=== PATIENT | female | born 1955 | race African-American/Black ===

== ENCOUNTER 2016-06-08 03:52 | Emergency (ER) | payer OTHER ==
[2016-06-08 04:12] VITALS: BMI 28.3
--- NOTE | 2016-06-08 04:49 | PDOC ---
History of Present Illness - General History Source: Patient Exam Limitations: No Limitations - History of Present Illness Initial Comments: 06/08/16 05:11 The patient is a 60-year-old female with a significant past medical history of hypertension, and presents to the emergency department with left upper back pain and nausea tonight. The patient reports she woke up with excruciating pain in the left neck region radiating all the way around her shoulder to the upper back. She described the pain as a tightness and as if she was in a land department head. She reports that the veins in her left arm and hand appeared to pop out more than normal during this episode. She also states that she felt nauseous when she sat up, as if the food was squeezing back up. The patient denies shortness of breath, headache and dizziness. The patient denies fever, chills, vomit, diarrhea and constipation. The patient denies dysuria, frequency, urgency and hematuria. Allergies: NKDA Past Surgical History: None reported Social History: No toxic habits reported PCP: Dr. Vega <Ana Guevara - Last Filed: 06/08/16 05:11> <Kellie Dillon - Last Filed: 06/08/16 22:19> - General Chief Complaint: Pain, Acute Stated Complaint: LEFT SHOULDER PAIN Time Seen by Provider: 06/08/16 04:36 Past History <Ana Guevara - Last Filed: 06/08/16 05:11> - Surgical History Abdominal Surgery: Yes (ectopic, adhesions) Cholecystectomy: Yes - Family Disease History Family Disease History: Other: Father (CVA) - Psycho/Social/Smoking Cessation Hx Suicidal Ideation: No Smoking History: Never smoked <Kellie Dillon - Last Filed: 06/08/16 22:19> - Past Medical History Allergies/Adverse Reactions: Allergies Allergy/AdvReac Type Severity Reaction Status Date / Time INNA Inhibitors Allergy Verified 06/08/16 05:21 No INNA Allergy Uncoded 06/08/16 04:14 Home Medications: Ambulatory Orders Amlodipine Besylate [Norvasc -] 10 mg PO DAILY 06/08/16 Review of Systems - Review of Systems Able to Perform ROS?: Yes Comments:: 06/08/16 05:12 CONSTITUTIONAL: Absent: fever, chills, diaphoresis, generalized weakness, malaise, loss of appetite HEENT: Absent: rhinorrhea, nasal congestion, throat pain, throat swelling, difficulty swallowing, mouth swelling, ear pain, eye pain, visual changes CARDIOVASCULAR: Absent: chest pain, syncope, palpitations, irregular heart rate, lightheadedness , peripheral edema RESPIRATORY: Absent: cough, shortness of breath, dyspnea with exertion, orthopnea, wheezing, stridor, hemoptysis GASTROINTESTINAL: Present: (+) nausea Absent: abdominal pain, abdominal distension, vomiting, diarrhea, constipation, melena, hematochezia GENITOURINARY: Absent: dysuria, frequency, urgency, hesitancy, hematuria, flank pain, genital pain MUSCULOSKELETAL: Present: (+) left upper back and neck pain Absent: arthralgia, joint swelling SKIN: Absent: rash, itching, pallor HEMATOLOGIC/IMMUNOLOGIC: Absent: easy bleeding, easy bruising, lymphadenopathy, frequent infections ENDOCRINE: Absent: unexplained weight gain, unexplained weight loss, heat intolerance, cold intolerance NEUROLOGIC: Absent: headache, focal weakness or paresthesias, dizziness, unsteady gait, seizure, mental status changes, bladder or bowel incontinence PSYCHIATRIC: Absent: anxiety, depression, suicidal or homicidal ideation, hallucinations. <Ana Guevara - Last Filed: 06/08/16 05:11> *Physical Exam - Vital Signs Last Vital Signs Temp Pulse Resp BP Pulse Ox 97.9 F 72 18 134/81 98 06/08/16 04:10 06/08/16 04:10 06/08/16 04:10 06/08/16 04:10 06/08/16 04:10 - Physical Exam Comments: 06/08/16 05:12 GENERAL: Well developed, well nourished. Awake and alert. No acute distress. HEENT: Normocephalic, atraumatic. PERRLA, EOMI. No conjunctival pallor. Sclera are non- icteric. Moist mucous membranes. Oropharynx is clear. NECK: Supple. Full ROM. No JVD. Carotid pulses 2+ and symmetric, without bruits. No thyromegaly. No lymphadenopathy. CARDIOVASCULAR: Regular rate and rhythm. No murmurs, rubs, or gallops. Distal pulses are 2+ and symmetric. PULMONARY: No evidence of respiratory distress. Lungs clear to auscultation bilaterally. No wheezing, rales or rhonchi. ABDOMINAL: Soft. Non-tender. Non-distended. No rebound or guarding. No organomegaly. Normoactive bowel sounds. MUSCULOSKELETAL (+) Minimal tenderness on her left trapezius. Normal range of motion at all joints. No bony deformities. No CVA tenderness. EXTREMITIES: No cyanosis. No clubbing. No edema. No calf tenderness. SKIN: Warm and dry. Normal capillary refill. No rashes. No jaundice. NEUROLOGICAL: Alert, awake, appropriate. Cranial nerves 2-12 intact. No deficits to light touch and temperature in face, upper extremities and lower extremities. No motor deficits in the in face, upper extremities and lower extremities. Normoreflexic in the upper and lower extremities. Normal speech. Toes are down- going bilaterally. Gait is normal without ataxia. PSYCHIATRIC: Cooperative. Good eye contact. Appropriate mood and affect. <Ana Guevara - Last Filed: 06/08/16 05:11> - Vital Signs Last Vital Signs Temp Pulse Resp BP Pulse Ox 97.9 F 72 18 134/81 98 06/08/16 04:10 06/08/16 04:10 06/08/16 04:10 06/08/16 04:10 06/08/16 04:10 <Kellie Dillon - Last Filed: 06/08/16 22:19> ED Treatment Course - LABORATORY CBC & Chemistry Diagram: 06/08/16 06:21 06/08/16 07:35 <Kellie Dillon - Last Filed: 06/08/16 22:19> Medical Decision Making - Medical Decision Making 06/08/16 07:06 Pt comes with left back pain and nausea and vomiting that woke her from sleep. Cardiac panel pending. Pt's vitals and exam are normal. Pt will be signed out to the Day ER doctor who will follow a second cardiac enzyme and disposition patient at that point. <Kellie Dillon - Last Filed: 06/08/16 22:19> *DC/Admit/Observation/Transfer - Attestations Scribe Attestion: 06/08/16 05:12 Documentation prepared by Ana Guevara, acting as medical records technician for Kellie Dillon MD. <Ana Guevara - Last Filed: 06/08/16 05:11> <Kellie Dillon - Last Filed: 06/08/16 22:19> Diagnosis at time of Disposition: Neck pain, Lightheadedness - Discharge Dispostion Disposition: HOME Condition at time of disposition: Improved - Referrals Referrals: Willi Rosen MD [Staff Physician] - 24 hours (Cardiology-please call tomorrow to be seen in 24-48 hours) STAFF,NOT ON [Primary Care Provider] - - Patient Instructions Additional Instructions: Rest, Tylenol or Motrin for discomfort Please follow-up with Dr. [id number] we discussed Please call tomorrow to be seen in the office in 24-48 hours Followup with your primary care physician in 24-48 hours Return immediately if you worsen in any way - Post Discharge Activity Work/School Note: Back to Work
[2016-06-08] MEDS ORDERED: METHOCARBAMOL 500 MG TABLET PO ONE (05:02)
[2016-06-08] MEDS ORDERED: KETOROLAC TROMETHAMINE 30 MG/1 ML VIAL IVPUSH ONE (05:02)
[2016-06-08 06:51] LABS: BASOPHIL 0.5 % (0-2.0); EOSINOPHIL 2.4 % (0-4.5); MCH 29.2 pg (25.7-33.7); MCHC 32.3 g/dl (32.0-36.0); MEAN CELL VOLUME 90.2 fl (80-96); MEAN PLT VOLUME 10.8 fl (7.5-11.1); NEUTROPHILS 53.1 % (42.8-82.8); PLATELET COUNT 197 K/MM3 (134-434); RDW 13.3 % (11.6-15.6); WHITE BLOOD COUNT 7.1 K/mm3 (4.0-10.0)
[2016-06-08 07:03] LABS: INR 1.05 (0.82-1.09); PROTHROMBIN TIME (PATIENT) 11.6 SEC (9.98-11.88)
[2016-06-08 08:10] VITALS: TEMP 98.1
--- NOTE | 2016-06-08 08:22 | PDOC ---
*Physical Exam - Vital Signs Last Vital Signs Temp Pulse Resp BP Pulse Ox 98.1 F 70 18 133/78 99 06/08/16 08:07 06/08/16 08:07 06/08/16 08:07 06/08/16 08:07 06/08/16 08:07 - Physical Exam Comments: 06/08/16 08:18 SIGN IN Sign-out received from outgoing Emergency Physician Pt interviewed and examined Ancillary studies reviewed 60-year-old female with a past medical history of hypertension Family history-father had an OH at age 60 She has no history of diabetes, hyperlipidemia, or any other cardiac risk factors She is a nonsmoker Patient states that she was awakened from sleep with left trapezius and left neck spasm and tightness Then she felt very dizzy and lightheaded and nauseated, and felt some discomfort in her left arm, as noted in original note She denies any associated chest pain or palpitations She does state that in the past few days she's had some very mild intermittent chest pain off and on, which she did not seek medical attention for She denies any recent travel Last flight was in March She denies any calf pain or leg swelling She denies any palpitations She denies any recent intercurrent illnesses Physical exam Last Vital Signs Temp Pulse Resp BP Pulse Ox 98.1 F 70 18 133/78 99 06/08/16 08:07 06/08/16 08:07 06/08/16 08:07 06/08/16 08:07 06/08/16 08:07 GENERAL: The patient is awake, alert, and fully oriented, and in no apparent distress. HEAD: Normal with no signs of trauma. EYES: sclera anicteric, conjunctiva are normal. ENT: Moist mucous membranes. NECK: Normal range of motion, supple without lymphadenopathy, JVD, or masses. Patient states she's feeling better after muscle relaxer LUNGS: Breath sounds equal, clear to auscultation bilaterally. No wheezes, and no crackles. HEART: Regular rate and rhythm, normal S1 and S2 without murmur, rub or gallop. ABDOMEN: Soft, nontender, normoactive bowel sounds. No guarding, no rebound. No masses appreciated. EXTREMITIES: Normal range of motion, no edema. No clubbing or cyanosis. No cords, erythema, or tenderness. NEUROLOGICAL: Cranial nerves II through XII grossly intact. Normal speech, normal gait. PSYCH: Normal mood, normal affect. SKIN: Warm, Dry, normal turgor, no rashes or lesions noted. EKG Normal sinus rhythm 64, left axis deviation -6 Normal AV and IV conduction time Normal QTC Nonspecific ST T's When compared to the EKG of 02/12/13 Today's EKG is basically unchanged from the prior EKG Labwork Laboratory Results - last 24 hr 06/08/16 06/08/16 06/08/16 06:21 06:21 06:21 WBC 7.1 RBC 4.34 Hgb 12.7 Hct 39.2 MCV 90.2 MCHC 32.3 RDW 13.3 Plt Count 197 MPV 10.8 D Neutrophils % 53.1 Lymphocytes % 35.4 Monocytes % 8.6 Eosinophils % 2.4 Basophils % 0.5 INR 1.05 Sodium Cancelled Potassium Cancelled Chloride Cancelled Carbon Dioxide Cancelled Anion Gap Cancelled BUN Cancelled Creatinine Cancelled Creat Clearance w eGFR Cancelled Random Glucose Cancelled Calcium Cancelled Total Bilirubin Cancelled AST Cancelled ALT Cancelled Alkaline Phosphatase Cancelled Creatine Kinase Cancelled Troponin I Cancelled Total Protein Cancelled Albumin Cancelled Labwork hemolyzed and had to be redrawn May need second set of cardiac enzymes, with touch base with cardiology 06/08/16 14:26 EKG #2 Normal sinus rhythm, left axis deviation -5 Normal AV and IV conduction time Normal QTC Nonspecific ST-T waves When compared to EKG #1, which was done at 5:25 AM EKG #2 was unchanged from EKG #1 06/08/16 15:29 Second set of cardiac enzymes negative Case and all results discussed with Dr. Rosen-cardiology Patient will be seen in the cardiology office in 24-48 hours ED Treatment Course - LABORATORY CBC & Chemistry Diagram: 06/08/16 06:21 06/08/16 07:35 - ADDITIONAL ORDERS Additional order review: Laboratory Results 06/08/16 06/08/16 06:21 06:21 INR 1.05 Sodium Cancelled Potassium Cancelled Chloride Cancelled Carbon Dioxide Cancelled Anion Gap Cancelled BUN Cancelled Creatinine Cancelled Creat Clearance w eGFR Cancelled Random Glucose Cancelled Calcium Cancelled Total Bilirubin Cancelled AST Cancelled ALT Cancelled Alkaline Phosphatase Cancelled Creatine Kinase Cancelled Troponin I Cancelled Total Protein Cancelled Albumin Cancelled 06/08/16 06:21 RBC 4.34 MCV 90.2 MCHC 32.3 RDW 13.3 MPV 10.8 D Neutrophils % 53.1 Lymphocytes % 35.4 Monocytes % 8.6 Eosinophils % 2.4 Basophils % 0.5 - Medications Given in the ED: ED Medications Discontinued Medications Generic Name Dose Route Start Last Admin Trade Name Santy PRN Reason Stop Dose Admin Ketorolac Tromethamine 30 mg 06/08/16 05:02 06/08/16 06:44 Toradol Injection - IVPUSH 06/08/16 05:03 30 mg ONCE ONE Administration Methocarbamol 1,000 mg 06/08/16 05:02 06/08/16 05:44 Robaxin - PO 06/08/16 05:03 1,000 mg ONCE ONE Administration Medical Decision Making - Medical Decision Making 06/08/16 08:44 Laboratory Results - last 24 hr 06/08/16 06/08/16 06/08/16 06:21 06:21 06:21 WBC 7.1 RBC 4.34 Hgb 12.7 Hct 39.2 MCV 90.2 MCHC 32.3 RDW 13.3 Plt Count 197 MPV 10.8 D Neutrophils % 53.1 Lymphocytes % 35.4 Monocytes % 8.6 Eosinophils % 2.4 Basophils % 0.5 INR 1.05 Sodium Cancelled Potassium Cancelled Chloride Cancelled Carbon Dioxide Cancelled Anion Gap Cancelled BUN Cancelled Creatinine Cancelled Creat Clearance w eGFR Cancelled Random Glucose Cancelled Calcium Cancelled Total Bilirubin Cancelled AST Cancelled ALT Cancelled Alkaline Phosphatase Cancelled Creatine Kinase Cancelled Troponin I Cancelled Total Protein Cancelled Albumin Cancelled 06/08/16 07:35 WBC RBC Hgb Hct MCV MCHC RDW Plt Count MPV Neutrophils % Lymphocytes % Monocytes % Eosinophils % Basophils % INR Sodium 142 Potassium 4.2 Chloride 106 Carbon Dioxide 29 Anion Gap 7 L BUN 15 D Creatinine 1.1 H D Creat Clearance w eGFR 50.84 Random Glucose 87 D Calcium 8.4 L Total Bilirubin 0.5 AST 18 D ALT 19 Alkaline Phosphatase 112 D Creatine Kinase 73 Troponin I < 0.02 Total Protein 7.0 Albumin 3.6 First set of cardiac enzymes negative CMP reviewed second set of cardiac enzymes in 6 hours negative 2 EKG's unchanged and unchanged from old EKG *DC/Admit/Observation/Transfer Diagnosis at time of Disposition: Neck pain, Lightheadedness - Discharge Dispostion Disposition: HOME Condition at time of disposition: Improved - Referrals Referrals: STAFF,NOT ON [Primary Care Provider] - Willi Rosen MD [Staff Physician] - 24 hours (Cardiology-please call tomorrow to be seen in 24-48 hours) - Patient Instructions Additional Instructions: Rest, Tylenol or Motrin for discomfort Please follow-up with Dr. [id number]-de we discussed Please call tomorrow to be seen in the office in 24-48 hours Followup with your primary care physician in 24-48 hours Return immediately if you worsen in any way - Post Discharge Activity Work/School Note: Back to Work
[2016-06-08 08:23] LABS: ALBUMIN 3.6 g/dl (3.4-5.0); ANION GAP 7 (8-16); BILIRUBIN,TOTAL 0.5 mg/dL (0.2-1.0); CALCIUM 8.4 mg/dL (8.5-10.1); CO2 29 mmol/L (21-32); CREATININE 1.1 mg/dL (0.55-1.02); GLUCOSE,RANDOM 87 mg/dL (74-106); SGOT/AST 18 U/L (15-37); SGPT/ALT 19 U/L (12-78)
[2016-06-08 08:26] LABS: ALK PHOS 112 U/L (45-117); TROPONIN I < 0.02 ng/ml (0.00-0.05)
[2016-06-08 15:11] LABS: TROPONIN I < 0.02 ng/ml (0.00-0.05)
[2016-06-08 15:41] VITALS: BP 154/88; PULSE 80
--- NOTE | 2016-06-09 00:06 | EKG ---
Test Reason : Blood Pressure : / mmHG Vent. Rate : 064 BPM Atrial Rate : 064 BPM P-R Int : 182 ms QRS Dur : 090 ms QT Int : 438 ms P-R-T Axes : 039 -06 025 degrees QTc Int : 451 ms NORMAL SINUS RHYTHM MINIMAL VOLTAGE CRITERIA FOR LVH, MAY BE NORMAL VARIANT CANNOT RULE OUT ANTERIOR INFARCT , AGE UNDETERMINED ABNORMAL ECG WHEN COMPARED WITH ECG OF 12-FEB-2013 19:55, NO SIGNIFICANT CHANGE WAS FOUND Confirmed by TRACI GOVEA MD ([id number]) on 06/09/2016 12:05:51 AM Referred By: Confirmed By:TRACI GOVEA MD
--- NOTE | 2016-06-09 00:12 | EKG ---
Test Reason : Blood Pressure : / mmHG Vent. Rate : 066 BPM Atrial Rate : 066 BPM P-R Int : 174 ms QRS Dur : 094 ms QT Int : 446 ms P-R-T Axes : 043 -05 032 degrees QTc Int : 467 ms NORMAL SINUS RHYTHM MINIMAL VOLTAGE CRITERIA FOR LVH, MAY BE NORMAL VARIANT CANNOT RULE OUT ANTERIOR INFARCT (CITED ON OR BEFORE 08-JUN-2016) ABNORMAL ECG WHEN COMPARED WITH ECG OF 08-JUN-2016 05:25, NO SIGNIFICANT CHANGE WAS FOUND Confirmed by TRACI GOVEA MD ([id number]) on 06/09/2016 12:11:37 AM Referred By: Confirmed By:TRACI GOVEA MD
== END 2016-06-08 15:42 | disposition home or self-care (01) ==
LOC: JER 03:52
PROC: 3E0333Z Introduction of Anti-inflammatory into Peripheral Vein, Percutaneous Approach (ICD-10-PCS; principal; 2016-06-08)
DX: M54.2 Cervicalgia (principal); R42 Dizziness and giddiness; M62.838 Other muscle spasm; I10 Essential (primary) hypertension
CPT/HCPCS: 36415; 71020-TC; 80053; 82550; 84484; 85025; 85610; 93005; 93010; 96374; 99285-25

== ENCOUNTER 2016-07-22 20:34 | Emergency (ER) | payer OTHER ==
[2016-07-22] MEDS ORDERED: OXYCODONE/APAP 5/325MG COMBO TABLET PO ONE (20:55)
--- NOTE | 2016-07-22 20:58 | PDOC ---
Rapid Medical Evaluation Chief Complaint: Injury Time Seen by Provider: 07/22/16 20:52 Medical Evaluation: Allergies Allergy/AdvReac Type Severity Reaction Status Date / Time INNA Inhibitors Allergy Verified 06/08/16 05:21 No INNA Allergy Uncoded 06/08/16 04:14 07/22/16 20:56 I have performed a brief in-person evaluation of this patient. o The patient presents with a chief complaint of: S/P Fall, Left wrist deformity. o Pertinent physical exam findings: Deformity to the left wrist. Pain to arm. o I have ordered the following: Xray of the wrist and hand, forearm and elbow. Percocet o The patient will proceed to the ED for further evaluation.
[2016-07-22 20:59] VITALS: BP 133/89; PULSE 72; TEMP 98; BMI 25.8
[2016-07-22] MEDS ORDERED: OXYCODONE/APAP 5/325MG COMBO TABLET ONE (21:25)
--- NOTE | 2016-07-22 21:30 | PDOC ---
History of Present Illness - General Chief Complaint: Injury Stated Complaint: INJURY Time Seen by Provider: 07/22/16 20:52 History Source: Patient - History of Present Illness Occurred: reports: this evening Upper Extremity Pain Location: left: wrist Method of Injury: reports: fell Past History - Past Medical History Allergies/Adverse Reactions: Allergies Allergy/AdvReac Type Severity Reaction Status Date / Time [place] Inhibitors Allergy Verified 06/08/16 05:21 No [place] Allergy Uncoded 06/08/16 04:14 Home Medications: Ambulatory Orders Amlodipine Besylate [Norvasc -] 10 mg PO DAILY 06/08/16 Tramadol HCl 50 mg PO Q6H #15 tablet MDD 200mg 07/22/16 HTN: Yes - Surgical History Abdominal Surgery: Yes (ectopic, adhesions) Cholecystectomy: Yes - Family Disease History Family Disease History: Other: Father (CVA) - Psycho/Social/Smoking Cessation Hx Suicidal Ideation: No Smoking History: Never smoked Have you smoked in the past 12 months: No Information on smoking cessation initiated: No Hx Alcohol Use: No Drug/Substance Use Hx: No Review of Systems - Review of Systems Musculoskeletal: Yes: Joint Pain, Joint Swelling *Physical Exam - Vital Signs Last Vital Signs Temp Pulse Resp BP Pulse Ox 98 F 72 19 133/89 99 07/22/16 20:57 07/22/16 20:57 07/22/16 20:57 07/22/16 20:57 07/22/16 20:57 - Physical Exam General Appearance: Yes: Appropriately Dressed, Mild Distress HEENT: positive: Normal Voice Neck: positive: Supple Respiratory/Chest: negative: Respiratory Distress Extremity: positive: Tender, Swelling, Other (+deformity to L wrist, NVI) Integumentary: positive: Dry, Warm Neurologic: positive: Fully Oriented, Alert, Normal Mood/Affect Procedures - Splinting Splint Location: Left: Wrist Hand-Made Type: orthoglass Splint Type: Yes: Sugar Tong Post-Proc Neuro Vasc Exam: normal [place] Bandage: yes, 2", 4" Sling: Yes Medical Decision Making - Medical Decision Making 07/22/16 21:23 60-year-old female, no significant history, presents with left wrist pain and swelling status post fall tonight. Denies any other injuries. Did not hit head See exam R/o wrist fx -pain control -XR 07/22/16 21:50 Non-displaced distal radial fx. Sugartong splint placed and sling given. Dc w/ pain meds and ortho f/u 07/22/16 21:51 *DC/Admit/Observation/Transfer Diagnosis at time of Disposition: Wrist fracture, left Qualifiers: Encounter type: initial encounter Fracture type: closed Qualified Code(s): S62.102A - Fracture of unspecified carpal bone, left wrist, initial encounter for closed fracture - Discharge Dispostion Disposition: HOME Condition at time of disposition: Improved - Prescriptions Prescriptions: Tramadol HCl 50 mg PO Q6H #15 tablet MDD 200mg - Patient Instructions Printed Discharge Instructions: DI for Wrist Fracture Additional Instructions: Keep splint in place and follow-up with Dr. Lombardo of orthopedic next week
== END 2016-07-22 22:22 | disposition home or self-care (01) ==
LOC: JERFT 20:34
PROC: 2W3FX1Z Immobilization of Left Hand using Splint (ICD-10-PCS; principal; 2016-07-22)
DX: S52.502A Unspecified fracture of the lower end of left radius, initial encounter for closed fracture (principal); W18.30XA Fall on same level, unspecified, initial encounter; Y93.9 Activity, unspecified; Y92.9 Unspecified place or not applicable; I10 Essential (primary) hypertension
CPT/HCPCS: 73070-TC-LT; 73090-TC-LT; 73110-TC-LT; 73130-TC-LT; 99281-25

== ENCOUNTER 2016-08-06 09:36 | Day surgery (SDC) | payer OTHER ==
[2016-08-04 10:20] VITALS: BMI 29.6
[2016-08-06] MEDS ORDERED: MIDAZOLAM HCL 2 MG/2 ML SINGLE DOSE VIAL ONE (10:51)
[2016-08-06] MEDS ORDERED: ROPIVACAINE HCL 0.5% 30ML VIAL ONE (10:51)
[2016-08-06] MEDS ORDERED: PROPOFOL 20 ML ONE ×2 (11:29→11:43)
[2016-08-06] MEDS ORDERED: ceFAZolin SODIUM 1 GM VIAL ONE (11:43)
[2016-08-06] MEDS ORDERED: DEXAMETHASONE SOD PHOSPHATE 4 MG/1 ML VIAL ONE (11:51)
[2016-08-06] MEDS ORDERED: KETOROLAC TROMETHAMINE 30 MG/1 ML VIAL ONE (11:52)
[2016-08-06] MEDS ORDERED: ONDANSETRON 4 MG/2 ML VIAL ONE (11:52)
[2016-08-06 14:08] VITALS: TEMP 97.5
[2016-08-06 14:12] VITALS: BP 147/96; PULSE 72
--- NOTE | 2016-08-07 12:27 | OP ---
DATE OF OPERATION: 08/06/2016 PREOPERATIVE DIAGNOSIS: Left comminuted intra-articular displaced distal radius fracture. POSTOPERATIVE DIAGNOSIS: Left comminuted intra-articular displaced distal radius fracture. OPERATIVE PROCEDURES: 1. Left distal radius open reduction and internal fixation with internal fixation of 3 or more fragments. 2. Left brachioradialis tenotomy. SURGEON: Den Simental MD HOUSEHOLD PERSONAL ASSISTANT: DELL Blount ANESTHESIA: Regional. COMPLICATIONS: None. ESTIMATED BLOOD LOSS: Minimal. INDICATION FOR PROCEDURE: The patient is a 60-year-old female with the above finding, indicated for operative treatment. Risks, benefits, and alternatives were discussed with the patient at length. Proper informed consent was obtained. DESCRIPTION OF PROCEDURE: After proper identification of the patient and the correct operative site, the patient was brought to the operating room and placed supine on the operating table. All prominences were well padded. Sedation and regional anesthesia were given and adequate for the procedure. Intravenous antibiotics were given. A timeout procedure was performed. The left upper extremity was prepped and draped in the usual sterile fashion. A well-padded tourniquet was placed, as well as sterile prep and an Esmarch bandage was applied to exsanguinate the left upper extremity. Tourniquet was inflated to 250 mmHg. A longitudinal incision was made of the flexor carpi radialis tendon. Incision was taken sharply through the skin with blunt and sharp dissection. Subcutaneous tissues and the flexor carpi radialis tendon were bluntly and gently retracted in an ulnarward direction along the contents of the carpal canal. The pronator quadratus was divided longitudinally and elevated off the distal radius. A displaced comminuted fracture was noted which on radiographs at this point was clearly intraarticular and represented a Klein-type fracture. The pull of the brachioradialis made fracture reduction incomplete. Therefore, a subperiosteal brachioradialis tenotomy was performed. The fracture was then able to be reduced manually and was held with an Acumed Acu-Loc 2 distal radius plate with proximal nonlocking screws and distal locking screws to secure the intraarticular portion. This provided a secure, stable fixation of the fracture as evidenced radiographically and clinically. The wrist was taken through range of motion and full range of motion was achievable. The distal were then stressed and found to be stable. The scapholunate interval was also stressed and found to be stable. Radiographs did show some scapholunate widening. However, given the lack of any instability on [place]rum scaphoid shift testing and clinical radiographic fluoroscopy, there was no indication for repair at this time. The wounds were irrigated with copious amounts of normal saline and repaired in layers, including the pronator quadratus, with a 4-0 Vicryl and 4-0 Monocryl suture. Sterile dressings and a splint were placed. The patient was reversed from anesthesia and brought to the recovery room in stable condition. Miguel Angel Cade, the contact center assistant, was integral throughout this procedure. The procedure could not have been performed without a skilled operative contact center assistant. Roxanne [id number]
== END 2016-08-06 14:10 | disposition home or self-care (01) ==
LOC: FASU 09:36
PROVIDERS: ATTEND Orthopaedic Surgery Hand Surgery
PROC: 0LN60ZZ Release Left Lower Arm and Wrist Tendon, Open Approach (ICD-10-PCS; 2016-08-06)
PROC: 0PSJ04Z Reposition Left Radius with Internal Fixation Device, Open Approach (ICD-10-PCS; principal; 2016-08-06 11:41)
DX: S52.502A Unspecified fracture of the lower end of left radius, initial encounter for closed fracture (principal); X58.XXXA Exposure to other specified factors, initial encounter; Y93.9 Activity, unspecified; Y92.9 Unspecified place or not applicable
CPT/HCPCS: 25290; 25609; C1713; 73110-TC-LT; 94760

== ENCOUNTER 2020-12-06 03:39 | Observation (INO) | payer OTHER ==
[2020-12-06 03:54] VITALS: BMI 29.6
[2020-12-06 04:39] LABS: BASO % 0.7 % (0-2.0); EOS % 2.5 % (0-4.5); HEMATOCRIT 39.4 % (32.4-45.2); HEMOGLOBIN 13.3 GM/dL (10.7-15.3); LYMPH % 36.8 % (8-40); MCH 30.2 pg (25.7-33.7); MCHC 33.8 g/dl (32.0-36.0); MEAN CELL VOLUME 89.4 fl (80-96); MEAN PLT VOLUME 8.9 fl (7.5-11.1); MONO % 8.3 % (3.8-10.2); NEUT % 51.7 % (42.8-82.8); PLATELET COUNT 184 10^3/uL (134-434); RBC 4.41 M/mm3 (3.60-5.2); RDW 13.5 % (11.6-15.6); WHITE BLOOD COUNT 7.7 K/mm3 (4.0-10.0)
[2020-12-06 04:53] LABS: URINE APPEARANCE CLEAR; URINE BILIRUBIN NEGATIVE (NEGATIVE); URINE COLOR YELLOW; URINE GLUCOSE (UA) NEGATIVE (NEGATIVE); URINE KETONE NEGATIVE (NEGATIVE); URINE LEUK ESTERASE NEGATIVE (NEGATIVE); URINE NITRITE NEGATIVE (NEGATIVE); URINE PROTEIN NEGATIVE (NEGATIVE); URINE UROBILINOGEN 0.2 mg/dL (0.2-1.0)
[2020-12-06 04:59] LABS: CHLORIDE 108 mmol/L (98-107); SODIUM 139 mmol/L (136-145)
[2020-12-06 05:01] LABS: ALBUMIN 2.9 g/dl (3.4-5.0); ANION GAP 5 MMOL/L (8-16); BLOOD UREA NITROGEN 19.6 mg/dL (7-18); CALCIUM 8.6 mg/dL (8.5-10.1); CO2 26 mmol/L (21-32)
[2020-12-06 05:02] LABS: GLUCOSE,RANDOM 96 mg/dL (74-106)
[2020-12-06 05:04] LABS: SGPT/ALT 27 U/L (13-61)
[2020-12-06 05:05] LABS: CREATININE 1.1 mg/dL (0.55-1.3); SGOT/AST 44 U/L (15-37)
[2020-12-06 05:06] LABS: BILIRUBIN,TOTAL 0.7 mg/dL (0.2-1); TOT PROT 6.7 g/dl (6.4-8.2)
[2020-12-06 05:07] LABS: ALK PHOS 95 U/L (45-117)
[2020-12-06 06:01] LABS: CALCIUM 8.6 mg/dL (8.5-10.1)
[2020-12-06 06:02] LABS: BLOOD UREA NITROGEN 18.6 mg/dL (7-18)
[2020-12-06 06:06] LABS: BILIRUBIN,TOTAL 0.6 mg/dL (0.2-1); TOT PROT 6.6 g/dl (6.4-8.2)
[2020-12-06 12:28] VITALS: BP 158/88; PULSE 65; TEMP 97.5
== END 2020-12-06 18:39 | disposition home or self-care (01) ==
LOC: JER 03:39 → JERBED 06:52
PROVIDERS: ADMIT Internal Medicine; ATTEND Internal Medicine
DX: M62.81 Muscle weakness (generalized) (principal); R55 Syncope and collapse; R42 Dizziness and giddiness; R07.9 Chest pain, unspecified; I10 Essential (primary) hypertension; Z86.73 Personal history of transient ischemic attack (TIA), and cerebral infarction without residual deficits; Z88.8 Allergy status to other drugs, medicaments and biological substances; Z29.9 Encounter for prophylactic measures, unspecified; Z86.16 Personal history of COVID-19
CPT/HCPCS: 36415; 70450-TC; 71045-TC-FY; 80053; 81003; 82550; 82553; 84484; 85025; 93005; 93010; 99285-25; C9803; G0378; U0003; U0005

== ENCOUNTER 2024-03-08 02:41 | Emergency (ER) | payer MEDICARE, OTHER ==
[2024-03-08 02:50] VITALS: BP 126/100; PULSE 84; RESP 18; TEMP 97.8; BMI 30.7
[2024-03-08] MEDS ORDERED: ACETAMINOPHEN INJECTION 100 ML ONE (03:53)
[2024-03-08 04:05] LABS: BASO % 0.4 % (0-2.0); EOS % 3.4 % (0-4.5); LYMPH % 36.8 % (8-40); MCH 29.8 pg (25.7-33.7); MCHC 33.3 g/dl (32.0-36.0); MEAN CELL VOLUME 89.4 fl (80-96); MEAN PLT VOLUME 9.5 fl (7.5-11.1); MONO % 7.3 % (3.8-10.2); NEUT % 52.1 % (42.8-82.8); PLATELET COUNT 243 10^3/uL (134-434); RBC 5.03 M/mm3 (3.60-5.2); RDW 14.2 % (11.6-15.6); WHITE BLOOD COUNT 7.6 K/mm3 (4.0-10.0)
[2024-03-08] MEDS: ACETAMINOPHEN 1000 MG/100 ML BAG IVPB ONE (04:14)
[2024-03-08 04:26] LABS: POTASSIUM 4.8 mmol/L (3.5-5.1)
[2024-03-08 04:28] LABS: CALCIUM 8.7 mg/dL (8.5-10.1)
[2024-03-08 04:29] LABS: ALBUMIN 3.8 g/dl (3.4-5.0); BLOOD UREA NITROGEN 18.6 mg/dL (7-18)
[2024-03-08 04:34] LABS: BILIRUBIN,TOTAL 0.8 mg/dL (0.2-1); TOT PROT 7.7 g/dl (6.4-8.2)
[2024-03-08 05:29] LABS: INR 1.04 (0.83-1.09); PROTHROMBIN TIME (PATIENT) 11.7 SEC (9.7-13.0)
[2024-03-08 05:32] LABS: ACTIVATED PTT 25.5 SECONDS (25.2-36.5)
== END 2024-03-08 05:57 | disposition home or self-care (01) ==
LOC: JER 02:41
PROC: 3E033NZ Introduction of Analgesics, Hypnotics, Sedatives into Peripheral Vein, Percutaneous Approach (ICD-10-PCS; principal; 2024-03-08)
DX: R51.9 Headache, unspecified (principal); M79.605 Pain in left leg; R20.0 Anesthesia of skin
CPT/HCPCS: 36415; 70450-TC; 80053; 85025; 85379; 85610; 85730; 99285-25; J0131